=== PATIENT | female | born 1965 | race Caucasian/White ===

== ENCOUNTER 2024-08-08 05:16 | Inpatient (IN) | payer BC ==
[~2024-08-08] VITALS: Ht 162.6 cm; Wt 75.3 kg
[2024-08-08] MEDS: ASPIRIN 325MG TABLET PO ONE (05:54)
[2024-08-08 06:27] LABS: CHLORIDE 109 mEq/L (98-107); POTASSIUM 3.4 mEq/L (3.5-5.1); SODIUM 144 mEq/L (136-145)
[2024-08-08 06:28] LABS: BASOPHILS % 0.4 % (0.0-2.0); CALCIUM 9.4 mg/dL (8.7-10.4); CARBON DIOXIDE 26 mEq/L (21-32); EOSINOPHILS % 0.2 % (0.0-5.0); HEMATOCRIT. 37.4 % (36.0-48.0); HEMOGLOBIN. 12.1 g/dL (12.0-16.0); LYMPHOCYTES % 20.2 % (20.0-50.0); MEAN CORPUSCULAR HEMOGLOBIN 27.4 pg (28.0-32.0); MEAN CORPUSCULAR HGB CONC 32.3 g/dL (31.0-37.0); MEAN PLATELET VOLUME 8.9 fl (7.4-10.4); MONOCYTES % 7.8 % (2.0-8.0); NEUTROPHILS % 71.4 % (40.0-76.0); PLATELET 291 x1000/uL (130-400); RED BLOOD CELL COUNT 4.41 mill/uL (4.2-5.4); RED CELL DISTRIBUTION WIDTH 14.4 % (11.6-14.6); WHITE BLOOD COUNT 7.2 x1000/uL (4.5-11.0)
[2024-08-08 06:33] LABS: CREATININE 0.9 mg/dL (0.6-1.0); GLUCOSE 144 mg/dL (70-105); UREA NITROGEN BLOOD 20 mg/dL (9-23)
[2024-08-08 06:34] LABS: TROPONIN I HIGH SENSITIVITY 31 ng/L (3.0-34)
[2024-08-08] MEDS ORDERED: ACETAMINOPHEN 325MG TABLET PO PRN (08:45)
[2024-08-08] MEDS ORDERED: DOCUSATE SODIUM 100MG CAPSULE PO PRN (08:45)
[2024-08-08] MEDS ORDERED: CLONIDINE 0.1MG TABLET PO PRN (08:45)
[2024-08-08] MEDS ORDERED: MAGNESIUM/ALUMINUM HYDROXIDE/SIMETHICONE 30ML UDC PO PRN (08:45)
[2024-08-08 08:57] LABS: TROPONIN I HIGH SENSITIVITY 29 ng/L (3.0-34)
[2024-08-08] MEDS ORDERED: CARVEDILOL 6.25 MG TABLET PO SCH (09:00)
[2024-08-08] MEDS: ENOXAPARIN 40MG/0.4ML SYR SUBCUT SCH (09:02)
[2024-08-08] MEDS: CARVEDILOL 6.25 MG TABLET PO SCH (09:02)
[2024-08-08 10:40] VITALS: BP 182/83; PULSE 92; RESP 18; TEMP 36.1
[2024-08-08 12:00] VITALS: BP 192/83; PULSE 92; RESP 19; TEMP 36.2; O2SAT 97
[2024-08-08 16:00] VITALS: BP 190/117; PULSE 80; RESP 15; TEMP 37.2; O2SAT 97
[2024-08-08 16:54] LABS: TROPONIN I HIGH SENSITIVITY 33 ng/L (3.0-34)
[2024-08-08] MEDS ORDERED: AMLO10TA4 PO (18:41)
[2024-08-08] MEDS ORDERED: AMLO10TA4 MT (18:41)
[2024-08-08 20:00] VITALS: BP 175/98; PULSE 93; RESP 20; TEMP 36.2; O2SAT 97
[2024-08-08] MEDS: METOPROLOL TARTRATE 25MG TABLET PO SCH (21:56)
[2024-08-08] MEDS: AMLODIPINE 5MG TABLET PO SCH (21:56)
[2024-08-08 22:29] LABS: TROPONIN I HIGH SENSITIVITY 38 ng/L (3.0-34)
[2024-08-09] VITALS: BP 175/96; PULSE 81; RESP 20; TEMP 36.1; O2SAT 97
[2024-08-09 04:00] VITALS: BP 173/109; PULSE 76; RESP 22; TEMP 36.3; O2SAT 96
[2024-08-09] MEDS: HYDRALAZINE 20MG/ML VIAL IV PRN (04:57)
[2024-08-09 08:00] VITALS: BP 167/95; PULSE 80; RESP 19; TEMP 36.3; O2SAT 96
[2024-08-09 12:00] VITALS: BP 161/89; PULSE 75; RESP 18; TEMP 36.8; O2SAT 98
[2024-08-09 12:07] VITALS: BP 161/89; PULSE 75; TEMP 98.3; O2SAT 97
[2024-08-10] MEDS ORDERED: LOSARTAN 25 MG TABLET PO SCH (09:00)
== END 2024-08-09 14:00 | disposition left against medical advice (07) | DRG 311 ==
LOC: ER 05:16 → 6WST 07:19
PROVIDERS: ADMIT Internal Medicine Pulmonary Disease; ATTEND Internal Medicine Pulmonary Disease
DX: I20.0 Unstable angina (principal); Z53.29 Procedure and treatment not carried out because of patient's decision for other reasons; E78.5 Hyperlipidemia, unspecified; R07.89 Other chest pain; Z63.4 Disappearance and death of family member; Z79.899 Other long term (current) drug therapy; Z82.49 Family history of ischemic heart disease and other diseases of the circulatory system; Z83.3 Family history of diabetes mellitus
CPT/HCPCS: 36415; 71045; 80048; 84484; 85025; 85379; 93005; 99285; J0360; J1650

== ENCOUNTER 2024-12-28 06:05 | Inpatient (IN) | payer BC ==
[~2024-12-28] VITALS: Ht 162.6 cm; Wt 81.6 kg
[~2024-12-28 06:05] MED LIST: AMLO-905 MT
[2024-12-28 06:10] VITALS: O2SAT 96
[2024-12-28 08:09] LABS: BASOPHILS % 0.5 % (0.0-2.0); EOSINOPHILS % 1.4 % (0.0-5.0); HEMATOCRIT. 37.5 % (36.0-48.0); HEMOGLOBIN. 12.5 g/dL (12.0-16.0); LYMPHOCYTES % 26.3 % (20.0-50.0); MEAN PLATELET VOLUME 10.1 fl (7.4-10.4); MONOCYTES % 5.8 % (2.0-8.0); NEUTROPHILS % 66.0 % (40.0-76.0); PLATELET 295 x1000/uL (130-400); RED BLOOD CELL COUNT 4.45 mill/uL (4.2-5.4); RED CELL DISTRIBUTION WIDTH 14.6 % (11.6-14.6)
[2024-12-28 08:10] LABS: CREATININE 0.8 mg/dL (0.6-1.0)
[2024-12-28 08:11] LABS: UREA NITROGEN BLOOD 18 mg/dL (9-23)
[2024-12-28 08:13] LABS: ASPARTATE AMINOTRANSFERASE 45 IU/L (<34); BILIRUBIN DIRECT < 0.1 mg/dL (<=3.0); BILIRUBIN TOTAL 0.4 mg/dL (0.1-1.0); PROTEIN TOTAL 7.8 g/dL (6.0-8.3)
[2024-12-28 08:17] LABS: TROPONIN I HIGH SENSITIVITY 38 ng/L (3.0-34)
[2024-12-28] MEDS: ASPIRIN 325MG EC TABLET PO ONE (09:51)
[2024-12-28] MEDS ORDERED: AMLO-905 MT (10:27)
[2024-12-28] MEDS ORDERED: ACETAMINOPHEN 325MG TABLET PO PRN ×2 (10:30)
[2024-12-28] MEDS ORDERED: CLONIDINE 0.1MG TABLET PO PRN (10:30)
[2024-12-28] MEDS ORDERED: ACETAMINOPHEN 650MG/20.3ML UDC GT PRN (10:30)
[2024-12-28] MEDS ORDERED: IPRATROPIUM/ALBUTEROL 0.5-3(2.5)MG/3ML NEB HHN PRN (10:30)
[2024-12-28] MEDS ORDERED: ONDANSETRON HCL 4MG/2ML INJ IV PRN (10:30)
[2024-12-28] MEDS ORDERED: HYDRALAZINE 20MG/ML VIAL IV PRN (10:30)
[2024-12-28 10:39] LABS: TROPONIN I HIGH SENSITIVITY 39 ng/L (3.0-34)
[2024-12-28 12:00] VITALS: BP 172/100; PULSE 80; RESP 16; TEMP 36.7; TEMP 36.7516; O2SAT 98
[2024-12-28] MEDS: POTASSIUM CHLORIDE 20MEQ/PACKET PO SCH (12:35)
[2024-12-28] MEDS: AMLODIPINE 10MG TABLET PO SCH (12:36)
[2024-12-28 16:00] VITALS: BP 158/89; PULSE 70; RESP 20; TEMP 36.7; O2SAT 95
[2024-12-28 18:00] LABS: TROPONIN I HIGH SENSITIVITY 37.0 ng/L (3.0-34)
[2024-12-28] MEDS: POTASSIUM CHLORIDE 20MEQ/PACKET PO NR (19:06)
[2024-12-28 20:00] VITALS: BP 167/93; PULSE 83; RESP 20; TEMP 36.6; O2SAT 97
[2024-12-28] MEDS: FUROSEMIDE 20MG/2ML VIAL IVP SCH (20:54)
[2024-12-28] MEDS: ATORVASTATIN CALCIUM 20MG TABLET PO SCH (20:54)
[2024-12-28] MEDS: ENOXAPARIN 40MG/0.4ML SYR SUBCUT SCH (20:54)
[2024-12-29] VITALS: BP 147/67; PULSE 86; RESP 20; TEMP 36.4; O2SAT 95
[2024-12-29] MEDS ORDERED: IOHEXOL-350 100 ML BOTTLE ONE (03:44)
[2024-12-29 04:00] VITALS: BP 137/71; PULSE 81; RESP 16; TEMP 36.4; O2SAT 96
[2024-12-29] MEDS: LOSARTAN 50 MG TABLET PO SCH (05:53)
[2024-12-29 07:05] LABS: BASOPHILS % 0.6 % (0.0-2.0); EOSINOPHILS % 2.5 % (0.0-5.0); HEMATOCRIT. 36.8 % (36.0-48.0); HEMOGLOBIN. 12.2 g/dL (12.0-16.0); LYMPHOCYTES % 36.8 % (20.0-50.0); MEAN PLATELET VOLUME 9.3 fl (7.4-10.4); MONOCYTES % 7.5 % (2.0-8.0); NEUTROPHILS % 52.6 % (40.0-76.0); PLATELET 301 x1000/uL (130-400); RED BLOOD CELL COUNT 4.35 mill/uL (4.2-5.4); RED CELL DISTRIBUTION WIDTH 14.5 % (11.6-14.6)
[2024-12-29 07:19] LABS: CREATININE 0.8 mg/dL (0.6-1.0); UREA NITROGEN BLOOD 17 mg/dL (9-23)
[2024-12-29 07:21] LABS: ASPARTATE AMINOTRANSFERASE 24 IU/L (<34); BILIRUBIN TOTAL 0.3 mg/dL (0.1-1.0); PROTEIN TOTAL 7.3 g/dL (6.0-8.3)
[2024-12-29 08:30] VITALS: BP 153/75; PULSE 74; RESP 20; TEMP 37.4; O2SAT 99
[2024-12-29] MEDS: POTASSIUM CHLORIDE 20MEQ/PACKET PO NR (10:29)
[2024-12-29 12:08] VITALS: BP 147/76; PULSE 82; RESP 20; TEMP 36.6; O2SAT 92
[2024-12-29] MEDS ORDERED: ASPIRIN 81MG TABLET PO SCH (13:00)
[2024-12-29 14:10] VITALS: PULSE 82
[2024-12-29] MEDS: ISOSORBIDE MONONITRATE 30MG TABLET SR 24HR PO SCH (14:10)
[2024-12-29] MEDS: FUROSEMIDE 40MG/4ML VIAL IVP SCH (14:10)
[2024-12-29] MEDS ORDERED: ASPI-1160 PO (17:05)
[2024-12-29] MEDS ORDERED: ATOR20TA PO (17:05)
[2024-12-29] MEDS ORDERED: AMLO10TA80 PO (17:05)
== END 2024-12-29 14:50 | disposition left against medical advice (07) | DRG 280 ==
LOC: ER 06:05 → 7WST 09:52 → EDBEDREQ 09:55 → EDBEDREQTM 09:55 → ENRESERV 10:02
PROVIDERS: ADMIT Internal Medicine; ATTEND Internal Medicine
DX: I21.4 Non-ST elevation (NSTEMI) myocardial infarction (principal); J18.9 Pneumonia, unspecified organism; I42.9 Cardiomyopathy, unspecified; I11.0 Hypertensive heart disease with heart failure; I16.0 Hypertensive urgency; E78.5 Hyperlipidemia, unspecified; E87.6 Hypokalemia; I25.10 Atherosclerotic heart disease of native coronary artery without angina pectoris; I50.9 Heart failure, unspecified; Z53.29 Procedure and treatment not carried out because of patient's decision for other reasons; Z79.899 Other long term (current) drug therapy; Z82.49 Family history of ischemic heart disease and other diseases of the circulatory system
CPT/HCPCS: 36415; 71045; 71275; 80048; 80053; 80076; 83735; 83880; 84132; 84484; 85025; 85027; 93005; 99285; J1650; J1938; Q9967